=== PATIENT | male | born 1990 | race Caucasian/White ===

== ENCOUNTER 2017-06-02 09:22 | Emergency (ER) | payer OTHER ==
[~2017-06-02] VITALS: Ht 170.2 cm; Wt 81.6 kg
[~2017-06-02 09:22] MED LIST: AMOX-559 PO; AUG500 PO; CEPH-13 PO; IBUP800T37 PO; IBUPROFEN
--- NOTE | 2017-06-02 09:26 | ER Report ---
History and Physical Time Seen By MD: 09:25 HPI/ROS CHIEF COMPLAINT:fever; bodyaches; diarrhea HISTORY OF PRESENT ILLNESS: Patient is a 26 her old male with no contributory past medical history who presents to department with complaint of sore throat fever body aches and diarrhea for the past 2-3 days. No other ill contacts at home. Patient admits to severe pain with swallowing. He denies any difficulty breathing. Fevers are subjective. He denies cough or shortness of breath. Also complains of black tongue, but has been taking Pepto-Bismol for diarrhea. REVIEW OF SYSTEMS: Respiratory: No cough, no dyspnea. Cardiovascular: No chest pain, no palpitations. Gastrointestinal: No vomiting, no abdominal pain. Musculoskeletal: No back pain. Allergies: Coded Allergies: No Known Drug Allergies (Verified , 11/18/14) Home Meds Active Scripts Omeprazole (OMEPRAZOLE) 40 Mg Capsule.dr, 1 CAP PO BID for 30 Days, #60 CAP 0 Refills Prov:ROBIN MEHTA DNP, [employer]- 06/03/17 Ondansetron (ZOFRAN ODT) 8 Mg Tab.rapdis, 8 MG PO Q12H, #8 TAB 0 Refills Prov:ROBIN MEHTA DNP, [employer]-BC 06/03/17 Amoxicillin (AMOXICILLIN) 500 Mg Capsule, 1 CAP PO Q8H, #21 CAPSULE 0 Refills TAKE ONE CAPSULE BY MOUTH EVERY 8 HOURS Prov:JORI MARROQUIN MD 06/02/17 Discontinued Scripts Amoxicillin/Pot Clav 875-125 Mg Tab (AUGMENTIN 875-125 TABLET) 1 Each Tablet, 1 TAB PO BID, #20 TAB 0 Refills Prov:NIURKA BARRERA MD 07/24/16 Past Medical/Surgical History Noncontributory Hx Smoking: No Smoking Status: Never Smoker Exposure to Second Hand Smoke?: No Hx Substance Use Disorder: No Hx Alcohol Use: Yes Constitutional Physical Exam General Appearance: The patient is alert, has no immediate need for airway protection and no current signs of toxicity. Eyes: Pupils equal and round no injection. ENT-TM's clear; OP-erythema with tonsilar swelling; uvula symmetrical Respiratory: Chest is non tender, lungs are clear to auscultation. Cardiac: regular rate and rhythm Gastrointestinal: Abdomen is soft and non tender, no masses, bowel sounds normal. Musculoskeletal: Neck: Neck is supple and non tender. Extremities have full range of motion and are non tender. Skin: No rashes or lesions. [ ] Medical Decision Making Data Points Laboratory Hematology Test 06/02/17 09:41 Influenza Virus Type A (PCR) Negative (NEGATIVE) Influenza Virus Type B (PCR) Negative (NEGATIVE) Group A Streptococcus Screen Positive (NEGATIVE) Chemistry Test 06/02/17 09:41 Influenza Virus Type A (PCR) Negative (NEGATIVE) Influenza Virus Type B (PCR) Negative (NEGATIVE) Group A Streptococcus Screen Positive (NEGATIVE) Microbiology Microbiology Date/Time Source Procedure Growth Status 06/02/17 09:41 Throat Group A Streptococcus Screen ([facility]) - Final GROUP A STREP (STREPTOCOCCUS PYOGENES... Complete EKG/Imaging Imaging FACILITY: [facility] [place] PATIENT NAME: Carlos Llamas : 1990 MR: [id number] V: [id number] EXAM DATE: [id number] ORDERING PHYSICIAN: JORI MARROQUIN TECHNOLOGIST: [place] [facility] [place] Llam[place] : 1990 Visit/Account:[id number] Date of Sevice: 06/02/2017 2 VIEWS CHEST INDICATION: Cough, chills and weakness. COMPARISON: None available FINDINGS: Cardiomediastinal silhouette and pulmonary vessels within normal limits. There is no focal infiltrate or lobar consolidation. There is no pneumothorax or pleural effusion. No nodule. Upper abdomen is unremarkable. No acute bony abnormality. IMPRESSION: 1. No acute cardiopulmonary process. Report Dictated By: Arnaud Garcia at 06/02/2017 10:09 AM Report E-Signed By: Arnaud Garcia at 06/02/2017 10:10 AM WSN:[id number] ED Course/Re-evaluation ED Course 06/02/2017 10:17:41 am patient found to have a group A strep pharyngitis. We' ll give IV dose Rocephin send the patient home on amoxicillin with instructions to follow-up if symptoms worsen or persist`1 Decision to Disposition Date: Jun 02, 2017 Decision to Disposition Time: 10:18 Depart Departure Latest Vital Signs Impression: Primary Impression: Strep throat Condition: Improved Disposition: HOME OR SELF-CARE New Scripts Amoxicillin (AMOXICILLIN) 500 Mg Capsule 1 CAP PO Q8H, #21 CAPSULE 0 Refills TAKE ONE CAPSULE BY MOUTH EVERY 8 HOURS Prov: JORI MARROQUIN MD 06/02/17 Departure Forms: ER Transition Record, Medications Reconciliation, Off Work/ School Form, School or Work Release?: Work Number of days to be released: 2 Patient Portal Information Patient Instructions: Strep Throat (ED) JORI MARROQUIN MD Jun 02, 2017 09:26
[2017-06-02] MEDS ORDERED: NS(*) 0.9% 1000 ML BAG 1,000 ML IV ONE (09:40)
[2017-06-02] MEDS ORDERED: ONDANSETRON 4 MG/2 ML VIAL IVP ONE (09:40)
[2017-06-02] MEDS ORDERED: KETOROLAC 15 MG/ML VIAL IVP ONE (09:40)
[2017-06-02] MEDS ORDERED: cefTRIAXone 1 GM VIAL IVP ONE (10:05)
--- NOTE | 2017-06-02 10:14 | RADIOLOGY IMAGING REPORT ---
FACILITY: [facility] - [place] PATIENT NAME: Carlos Llamas : 1990 MR: [id number] V: [id number] EXAM DATE: ORDERING PHYSICIAN: JORI MARROQUIN TECHNOLOGIST: Location: [facility] [place] Patient: Carlos Llamas : 1990 Visit/Account:[id number] Date of Sevice: 06/02/2017 2 VIEWS CHEST INDICATION: Cough, chills and weakness. COMPARISON: None available FINDINGS: Cardiomediastinal silhouette and pulmonary vessels within normal limits. There is no focal infiltrate or lobar consolidation. There is no pneumothorax or pleural effusion. No nodule. Upper abdomen is unremarkable. No acute bony abnormality. IMPRESSION: 1. No acute cardiopulmonary process. Report Dictated By: Arnaud Garcia at 06/02/2017 10:09 AM Report E-Signed By: Arnaud Garcia at 06/02/2017 10:10 AM WSN:[id number]
[2017-06-02] MEDS ORDERED: AMOX-362 PO (10:19)
[2017-06-02 10:28] VITALS: BP 140/88
[2017-06-03] MEDS ORDERED: OMEP40CA48 PO (15:47)
[2017-06-03] MEDS ORDERED: ONDA8TAB94 PO (15:47)
== END 2017-06-02 10:33 | disposition home or self-care (01) ==
LOC: ER 09:39
DX: J02.0 Streptococcal pharyngitis (principal)
CPT/HCPCS: 71046; 87081; 87502; 87880; 96374; 96375; 99284; J0696; J1885; J2405; J7030

== ENCOUNTER → 2017-06-03 | Outpatient (CLI) | payer OTHER ==
[~2017-06-03] MED LIST changes: +AMOX-362 PO; +OMEP40CA48 PO; +ONDA8TAB94 PO
[2017-06-03 15:24] LABS: PLATELET COUNT, AUTOMATED 263 K/uL (150-450)
== END ==
LOC: LAB 14:58
PROVIDERS: ATTEND Nurse Practitioner Primary Care
DX: R10.9 Unspecified abdominal pain (principal)
CPT/HCPCS: 36415; 82040; 82150; 82247; 82310; 82374; 82435; 82565; 82947; 83690; 84075; 84132; 84155; 84295; 84450; 84460; 84520; 85025

== ENCOUNTER → 2018-12-02 | Outpatient (CLI) | payer OTHER ==
[2018-12-02 10:38] LABS: PLATELET COUNT, AUTOMATED 366 K/uL (150-450)
--- NOTE | 2018-12-03 08:34 | EKG ---
FACILITY: [facility] PATIENT NAME: SUGEY DAVIDSON : [id number] MR: [id number] V: [id number] EXAM DATE: ORDERING PHYSICIAN: CHINTAN SANDHU TECHNOLOGIST: RANDY Test Reason : CHEST PAIN Blood Pressure : / mmHG Vent. Rate : 089 BPM Atrial Rate : 089 BPM P-R Int : 144 ms QRS Dur : 094 ms QT Int : 374 ms P-R-T Axes : 045 041 016 degrees QTc Int : 455 ms Normal sinus rhythm Normal ECG No previous ECGs available Referred By: PHOEBE Confirmed By:
== END ==
LOC: LAB 10:18
PROVIDERS: ATTEND Internal Medicine
DX: R07.9 Chest pain, unspecified (principal); R03.0 Elevated blood-pressure reading, without diagnosis of hypertension
CPT/HCPCS: 36415; 81001; 82040; 82247; 82310; 82374; 82435; 82465; 82565; 82947; 83718; 84075; 84132; 84155; 84295; 84443; 84450; 84460; 84478; 84520; 85025

== ENCOUNTER → 2018-12-02 | Outpatient (CLI) | payer OTHER | LOC: LAB 09:05 | PROVIDERS: ATTEND Surgery | DX: D17.1 Benign lipomatous neoplasm of skin and subcutaneous tissue of trunk (principal) | CPT/HCPCS: 88305 ==